=== PATIENT | female | born 1990 | race Caucasian/White ===

== ENCOUNTER 2018-09-09 18:51 | Emergency (ER) | payer MEDICAID ==
[2018-09-09 19:09] VITALS: BP 100/60; PULSE 90; RESP 18; O2SAT 99
--- NOTE | 2018-09-09 19:09 | ED PDOC ---
Arrival/HPI - General Historian: Patient - History of Present Illness Narrative History of Present Illness (Text): 09/09/18 19:06 28 y/o female, no significant pmh, nkda, last tetanus doesn't remember, c/o lt. hand 2nd digit finger laceration x 1 hour s/p by the metal from cup dispenser. Pt. stated that it's mild painful, refused pain med, no difficulty moving the finger, no night sweat,no dizziness, no change in vision, no rash, no palpitation, no other medical or psychological complaints. <Dereje Martinez - Last Filed: 09/09/18 19:29> <Isra Angel - Last Filed: 09/09/18 20:17> - General Time Seen by Provider: 09/09/18 19:05 Past Medical History - Provider Review Nursing Documentation Reviewed: Yes - Infectious Disease Hx of Infectious Diseases: None - Tetanus Immunization Tetanus Immunization: Unknown - Past Medical History Past Medical History: No Previous - Cardiac Hx Cardiac Disorders: No - Pulmonary Hx Respiratory Disorders: No Hx Asthma: No Hx Bronchitis: No Hx Chronic Obstructive Pulmonary Disease (COPD): No Hx Emphysema: No Hx Lung Cancer: No Hx Pneumonia: No Hx Pulmonary Edema: No Hx Pulmonary Embolism: No Hx Respiratory Aspiration: No Hx Respiratory Tract Infection: No Hx Sleep Apnea: No Hx Tuberculosis: No - Neurological Hx Neurological Disorder: No Hx Alzheimer's Disease: No HX Cerebrovascular Accident: No Hx Dementia: No Hx Dizziness: No Hx Meningitis: No Hx Migraine: No Hx Multiple Sclerosis: No Hx Paralysis: No Hx Parkinson's Disease: No Hx Seizures: No Hx Syncope: No Hx Transient Ischemic Attacks (TIA): No Hx Vertigo: No - HEENT Hx HEENT Disorder: No Hx Cataracts: No Hx Deafness: No Hx Difficulty Chewing: No Hx Epistaxis: No Hx Glaucoma: No Hx Macular Degeneration: No - Renal Hx Kidney Stones: No Hx Neurogenic Bladder: No Hx Pyelonephritis: No Hx Renal Cancer: No Hx Renal Failure: No - Endocrine/Metabolic Hx Hyperthyroidism: No Hx Hypothyroidism: No Hx Systemic Lupus Erythematosus: No - Hematological/Oncological Hx Metastasis: No Hx Shingles: No Hx Sickle Cell Disease: No Hx Unexplained Bleeding: No Hx von Willebrand's Disease: No - Integumentary Hx Dermatological Disorder: No Hx Basal Cell Carcinoma: No Hx Denise: No Hx Cellulitis: No Hx Eczema: No Hx Melanoma: No Hx Psoriasis: No Hx Squamous Cell Carcinoma: No - Musculoskeletal/Rheumatological Hx Arthritis: No Hx Gout: No Hx Herniated Disk: No Hx Myasthenia Gravis: No Hx Osteoarthritis: No Hx Osteomyelitis: No Hx Osteoporosis: No Hx Rhabdomyolysis: No Hx Rheumatoid Arthritis: No Hx Spinal Stenosis: No Hx Unsteady Gait: No - Gastrointestinal Hx Gastrointestinal Disorders: No Hx Bowel Surgery: No Hx Clostridium Difficile: No Hx Colitis: No Hx Colostomy: No Hx Constipation: No Hx Crohn's Disease: No Hx Diarrhea: No Hx Diverticulitis: No Hx Esophageal Varices: No Hx Fatty Liver Disease: No Hx Gall Bladder Disease: No Hx Gastritis: No Hx Gastroesophageal Reflux: No Hx Hemorrhoids: No Hx Ileostomy: No Hx Irritable Bowel: No Hx Liver Failure: No Hx Nausea: No Hx Pancreatitis: No HX Swallowing Problems: No Hx Vomiting: No - Genitourinary/Gynecological Hx Genitourinary Disorders: No Hx Bladder Cancer: No Hx Bladder Stone: No Hx Cervical Cancer: No Hx Hematuria: No Hx Incontinence: No Hx Ovarian Cancer: No Hx Reproductive Disorders: No Hx Sexually Transmitted Diseases: No Hx Uterine Cancer: No Hx Urinary Tract Infection: No - Psychiatric Hx Psychophysiologic Disorder: No Hx Anxiety: No Hx Bipolar Disorder: No Hx Depression: No Hx Emotional Abuse: No Hx Physical Abuse: No Hx Sexual Abuse: No Hx Substance Use: Yes - Past Surgical History Past Surgical History: No Previous - Surgical History Hx Abdominal Aortic Aneurysm Repair: No Hx Amputation: No Hx Angiogram: No Hx Angioplasty: No Hx Appendectomy: No Hx Arteriovenous Shunt: No Hx Arthroscopy: No Hx Bile Duct Stent: No Hx Breast Biopsy: No Hx Cataract Extraction: No Hx Cardiac Catheterization: No Hx Carotid Endarterectomy: No Hx Section: No Hx Cholecystectomy: No Hx Coronary Artery Bypass Graft: No Hx Coronary Stent: No Hx Dilation and Curettage: No Hx Eye Surgery: No Hx Femoral-Popliteal Bypass Graft: No Hx Gastric Bypass Surgery: No Hx Hysterectomy: No Hx Joint Replacement: No Hx Kidney Transplant: No Hx Liver Transplant: No Hx Mastectomy: No Hx Musculoskeletal Surgery: No Hx Open Heart Surgery: No Hx Open Reduction Internal Fixation: No Hx Orthopedic Surgery: No Hx Parathyroidectomy: No Hx Penile Implant: No Hx Pulmonary Surgery: No Hx Splenectomy: No Hx Thyroidectomy: No Hx Tonsillectomy: No Hx Tubal Ligation: No Hx Valve Replacement: No Hx Vascular Surgery: No Hx Vascular Access Device: No - Anesthesia Hx Anesthesia: No Hx Anesthesia Reactions: No Hx Malignant Hyperthermia: No - Suicidal Assessment Feels Threatened In Home Enviroment: No <MartinezDereje Washington - Last Filed: 09/09/18 19:29> Family/Social History - Physician Review Nursing Documentation Reviewed: Yes Family/Social History: Unknown Family HX Smoking Status: Light Smoker < 10 Cigarettes Daily Hx Alcohol Use: Yes Hx Substance Use: Yes Substance used: Karly,crack <Dereje Martinez - Last Filed: 09/09/18 19:29> Allergies/Home Meds <Dereje Martinez - Last Filed: 09/09/18 19:29> <Isra Angel - Last Filed: 09/09/18 20:17> Allergies/Adverse Reactions: Allergies No Known Allergies Allergy (Verified 08/25/16 09:35) Review of Systems - Review of Systems Constitutional: absent: Fatigue, Fevers Eyes: absent: Vision Changes ENT: absent: Hearing Changes Respiratory: absent: SOB, Cough Cardiovascular: absent: Chest Pain Gastrointestinal: absent: Abdominal Pain, Nausea, Vomiting Musculoskeletal: absent: Arthralgias Skin: Laceration. absent: Rash, Pruritis, Skin Lesions, Abscess Neurological: absent: Headache, Dizziness Psychiatric: absent: Anxiety, Depression, Suicidal Ideation <Dereje Martinez Padmini - Last Filed: 09/09/18 19:29> Physical Exam - Systems Exam Head: Present: Atraumatic, Normocephalic Pupils: Present: PERRL Extroacular Muscles: Present: EOMI Conjunctiva: Present: Normal Mouth: Present: Moist Mucous Membranes Neck: Present: Normal Range of Motion Respiratory/Chest: Present: Clear to Auscultation, Good Air Exchange. No: Respiratory Distress, Accessory Muscle Use Cardiovascular: Present: Regular Rate and Rhythm, Normal S1, S2. No: Murmurs Abdomen: No: Tenderness, Distention, Peritoneal Signs Back: Present: Normal Inspection Upper Extremity: Present: Normal Inspection, Other (Lt. hand 2nd digit: visible superficial approx. 1cm laceration on the dorsum proximal phalanx with no bony tenderness or swelling, FROM without limitation, sensation intact, motor 5/5, +radial pulse, capillary refill< 2 seconds, neurovascular intact. ). No: Cyanosis, Edema Lower Extremity: Present: Normal Inspection. No: Edema Neurological: Present: GCS=15, CN II-XII Intact, Speech Normal Skin: Present: Warm, Dry, Normal Color. No: Rashes Psychiatric: Present: Alert, Oriented x 3, Normal Insight, Normal Concentration <Dereje Martinez - Last Filed: 09/09/18 19:29> Vital Signs Temp Pulse Resp BP Pulse Ox 09/09/18 19:04 99 F 90 18 100/60 99 <Isra Angel - Last Filed: 09/09/18 20:17> Medical Decision Making ED Course and Treatment: 09/09/18 19:10 -Tdap -Urine hcg is negative -Offer motrin and agreed to take it 09/09/18 19:23 PROCEDURE: LACERATION REPAIR Performed by the emergency provider Location: lt. hand 2nd digit Length: 1 cm Description: {"clean wound edges","no foreign bodies"} Distal CMS: Normal. No deficits. Neurovascularly intact. Anesthesia: Lidocaine 1% 0.25 Preparation: The wound was cleaned with NS 1000cc and clean with Betadyne. The area was prepped and draped in the usual sterile fashion. Exploration: The wound was explored and no foreign bodies were found. Procedure: The wound was closed with 5-0 nylon. There was {good / appropriate / adequate / loose} approximation. In total, 3 were used. Post-Procedure: Good closure and hemostasis. The patient tolerated the procedure well and there were no complications. CSM remains intact. Post procedure dressing applied. 09/09/18 19:29 -Discharge home with keflex, motrin, keep the wound dry and clean for 2 days then clean with soap and water twice daily, sutures need to be removed by day 10-12, follow up with your own pmd and specialist within 2 days, return to the ER for any new or worsening signs or symptoms. <Dereje Martinez - Last Filed: 09/09/18 19:29> - Medication Orders Current Medication Orders: Discontinued Medications Ibuprofen (Motrin Tab) 600 mg PO STAT STA Stop: 09/09/18 19:33 Last Admin: 09/09/18 19:52 Dose: 600 mg MAR Pain/Vitals Document 09/09/18 19:52 OCS (Rec: 09/09/18 19:53 OCS [facility]) Pain Reassessment Is This A Pain ReAssessment? No Sleep Is patient sleeping during reassessment? No Presence of Pain Presence of Pain Yes Pain Scale Used Protocol: PSCALES Pain Scale Used Numeric Lidocaine HCl (Lidocaine 1% (20ml)) 0.5 ml IJ STAT STA Stop: 09/09/18 19:12 Last Admin: 09/09/18 19:54 Dose: Not Given Non-Admin Reason: Agitation Tetanus/Reduced Diphtheria/Acell Pertussis (Boostrix Vaccine Inj) 0.5 ml IM .ONCE ONE Stop: 09/09/18 19:12 Last Admin: 09/09/18 19:53 Dose: 0.5 ml Immunization Registry Document 09/09/18 19:53 OCS (Rec: 09/09/18 19:53 [facility]-Date provided 09/09/18 <Isra Angel - Last Filed: 09/09/18 20:17> - PA / MANAGER OF FINANCE / Resident Statement JUAN J has reviewed & agrees with the documentation as recorded. <Dereje Martinez - Last Filed: 09/09/18 19:29> - PA / MANAGER OF FINANCE / Resident Statement JUAN J has reviewed & agrees with the documentation as recorded. <Isra Angel - Last Filed: 09/09/18 20:17> Disposition/Present on Arrival - Present on Arrival Any Indicators Present on Arrival: No History of DVT/PE: No History of Uncontrolled Diabetes: No Urinary Catheter: No History of Decub. Ulcer: No History Surgical Site Infection Following: None - Disposition Have Diagnosis and Disposition been Completed?: Yes Disposition Time: 19:32 Patient Plan: Discharge <Dereje Martinez - Last Filed: 09/09/18 19:29> - Present on Arrival Any Indicators Present on Arrival: No - Disposition Have Diagnosis and Disposition been Completed?: Yes <Isra Angel - Last Filed: 09/09/18 20:17> - Disposition Diagnosis: Finger laceration Disposition: HOME/ ROUTINE Patient Problems: Current Active Problems Problem Status Onset Finger laceration Acute Condition: GOOD Additional Instructions: -Discharge home with keflex, motrin, keep the wound dry and clean for 2 days then clean with soap and water twice daily, sutures need to be removed by day 10-12, follow up with your own pmd and specialist within 2 days, return to the ER for any new or worsening signs or symptoms. Prescriptions: Cephalexin [Keflex] 500 mg PO TID #21 capsule Ibuprofen [Motrin] 600 mg PO QID PRN #30 tab PRN Reason: Other Referrals: Maddison Campos MD [Staff Provider] - [facility] up with primary [facility] [place] - Follow up with primary Forms: WORK NOTE
[2018-09-09] MEDS ORDERED: Lidocaine 1% Inj (20ml) IJ STA (19:11)
[2018-09-09] MEDS ORDERED: TDAP Vaccine 0.5 mL Syr IM ONE (19:11)
[2018-09-09 19:13] VITALS: BMI 21.4
[2018-09-09] MEDS ORDERED: Lidocaine 1% 5ml Abboject ONE (19:17)
[2018-09-09 21:16] VITALS: TEMP 99
== END 2018-09-09 19:55 | disposition home or self-care (01) ==
LOC: ED 18:51
DX: S61.211A Laceration without foreign body of left index finger without damage to nail, initial encounter (principal); W45.8XXA Other foreign body or object entering through skin, initial encounter; F17.210 Nicotine dependence, cigarettes, uncomplicated; Z23 Encounter for immunization